=== PATIENT | male | born 1995 | race Caucasian/White ===

== ENCOUNTER 2023-08-03 19:59 | Emergency (ER) | payer BC ==
[~2023-08-03] VITALS: Ht 170.2 cm; Wt 86.2 kg
[2023-08-03 20:10] VITALS: BP_SYST 139; PULSE 90; RESP 19; TEMP 97.9; O2SAT 100
[2023-08-03 22:21] LABS: BILIRUBIN,URINE NEGATIVE (NEGATIVE); BLOOD, URINE 3+ (NEGATIVE); CLARITY/URINE SL CLOUDY (CLEAR); COLOR,URINE YELLOW (YELLOW); GLUCOSE,URINE NEGATIVE (NEGATIVE); KETONES,URINE NEGATIVE (NEGATIVE); LEUKOCYTE ESTERASE ,URINE NEGATIVE (NEGATIVE); NITRITE, URINE NEGATIVE (NEGATIVE); PH,URINE 7.5 (5.0-8.0); PROTEIN URINE NEGATIVE (NEGATIVE); UROBILINOGEN,URINE 0.2 (0.2-1.0)
[2023-08-03 22:30] LABS: BASOPHILS # (AUTO) 0.1 K/uL (0.0-0.2); BASOPHILS % (AUTO) 0.5 % (0.0-2.0); EOSINOPHILS # (AUTO) 0.2 K/uL (0.0-0.4); EOSINOPHILS % (AUTO) 1.4 % (0.0-4.0); HEMATOCRIT 44.5 % (36-54); HEMOGLOBIN 15.7 g/dL (14.0-18.0); LYMPHOCYTES # (AUTO) 4.2 K/uL (1.0-5.5); LYMPHOCYTES % (AUTO) 27.9 % (20.5-51.5); MEAN CORPUSCULAR HEMOGLOBIN 30 pg (27-31); MEAN CORPUSCULAR HGB CONC 35 % (32-36); MEAN CORPUSCULAR VOLUME 85 fL (79.0-98.0); MONOCYTES % (AUTO) 6.5 % (1.7-9.3); NEUTROPHILS # (AUTO) 9.7 K/uL (1.8-7.7); NEUTROPHILS % (AUTO) 63.7 % (40.0-70.0); PLATELET COUNT (AUTO) 639 K/uL (130-430); RED BLOOD CELL COUNT(AUTO) 5.22 MIL/uL (4.2-6.2); RED CELL DISTRIBUTION WIDTH 13.2 % (9.0-15.0); WHITE BLOOD COUNT (AUTO) 15.2 K/uL (4.8-10.8)
[2023-08-03 22:32] LABS: CALCIUM 9.5 mg/dL (8.4-11.0); CREATININE 0.74 mg/dL (0.55-1.30); POTASSIUM 3.7 mmol/L (3.5-5.1)
[2023-08-03 22:45] LABS: BACTERIA,URINE RARE /HPF (None Seen); WBC,URINE 0-3 /HPF (0-3)
[2023-08-03 22:45] LABS: ALBUMIN 4.2 g/dL (3.4-4.8); BILIRUBIN,DIRECT 0.1 mg/dL (0.0-0.3); TOTAL BILIRUBIN 0.4 mg/dL (0.0-1.0); TOTAL PROTEIN, SERUM 7.4 g/dL (6.4-8.3)
[2023-08-03 23:14] LABS: PROTHROMBIN TIME 10.4 SECS (9.5-12.5)
[2023-08-03] MEDS ORDERED: HYDR-3917 PO (23:27)
[2023-08-03] MEDS ORDERED: ONDA-8 TL (23:27)
[2023-08-03] MEDS ORDERED: TAMS-11 PO (23:27)
[2023-08-03] MEDS ORDERED: IBUP-1970 PO (23:27)
[2023-08-03 23:37] VITALS: BP_SYST 129; PULSE 90; RESP 15; TEMP 97.3; O2SAT 99
== END 2023-08-03 23:37 | disposition home or self-care (01) ==
LOC: SED 19:59
DX: N20.0 Calculus of kidney (principal); R31.9 Hematuria, unspecified; Z79.899 Other long term (current) drug therapy
CPT/HCPCS: 36415; 76376; 80048; 80076; 81000; 81001; 81015; 82150; 83690; 85025; 85610-TC; 85730-TC; 99284